=== PATIENT | female | born 1975 | race Caucasian/White ===

== ENCOUNTER 2018-03-28 05:50 | Day surgery (SDC) | payer OTHER ==
[2018-03-28] MEDS ORDERED: NAPROXEN500 MG PO (09:46)
[2018-03-28] MEDS ORDERED: CODE1TAB37 PO (09:46)
== END 2018-03-28 12:00 | disposition home or self-care (01) ==
LOC: CIR.AMB 05:50
DX: Z30.2 Encounter for sterilization (principal)